=== PATIENT | female | born 1940 | race African-American/Black ===

== ENCOUNTER 2019-06-01 09:58 | Emergency (ER) | payer OTHER ==
[~2019-06-01] VITALS: Ht 165.1 cm; Wt 72.6 kg
[2019-06-01] MEDS ORDERED: ZOFRAN ODT4 MG PO (10:21)
[2019-06-01 10:40] VITALS: BP 129/80
== END 2019-06-01 10:40 | disposition home or self-care (01) ==
LOC: ER 09:58
DX: Z03.818 Encounter for observation for suspected exposure to other biological agents ruled out (principal); R11.0 Nausea